=== PATIENT | female | born 1980 | race Caucasian/White ===

== ENCOUNTER → 2017-12-02 | Outpatient (CLI) | payer BC, OTHER ==
[~2017-12-02] MED LIST: COLACE 100100 MG/CAP PO; PRENATAL1 TA1 PO
== END ==
LOC: MC.RAD 10:00
DX: Z12.31 Encounter for screening mammogram for malignant neoplasm of breast (principal)

== ENCOUNTER → 2018-12-11 | Outpatient (CLI) | payer BC, OTHER | LOC: MC.RAD 08:03 | DX: Z12.31 Encounter for screening mammogram for malignant neoplasm of breast (principal) ==

== ENCOUNTER → 2020-06-23 | Outpatient (CLI) | payer BC | LOC: MC.RAD 06-17 13:45 | DX: Z12.31 Encounter for screening mammogram for malignant neoplasm of breast (principal) ==

== ENCOUNTER → 2023-03-28 | Outpatient (CLI) | payer BC ==
[~2023-03-28] MED LIST changes: +AMOXICILLIN 8751 TAB PO; +MASON NATURAL2000 IU PO; +NEXIUM 20MG20 MG PO
== END ==
LOC: MC.RAD 09:30
DX: Z12.31 Encounter for screening mammogram for malignant neoplasm of breast (principal); N64.89 Other specified disorders of breast

== ENCOUNTER → 2023-04-01 | Outpatient (CLI) | payer BC | LOC: MC.RAD 09:51 | DX: N60.11 Diffuse cystic mastopathy of right breast (principal) ==